=== PATIENT | female | born 1985 | race Caucasian/White ===

== ENCOUNTER 2016-10-17 07:41 | Observation (INO) | payer MEDICAID ==
[2016-10-17] MEDS ORDERED: HYDROCODONE BIT/HOMATROPINE SYRUP 5 ML UDCUP PO ONE (08:38)
[2016-10-17] MEDS ORDERED: HYDROCODONE BIT/HOMATROPINE 5-1.5 MG TABLET PO ONE (09:00)
--- NOTE | 2016-10-17 09:50 | RADIOLOGY REPORT (SQ) ---
EXAM DESCRIPTION: CT SOFT TISSUE NECK WITH COMPLETED DATE/TIME: 10/17/2016 9:25 am REASON FOR STUDY: 36- sore throat , trouble swallowing, hx abscess COMPARISON: None. TECHNIQUE: Post IV contrasted scanning from skull base through lung apices with review of bone, soft tissue and lung windows. Reconstructed coronal and sagittal MPR images reviewed. All images stored on PACS. All CT scanners at this facility use dose modulation, iterative reconstruction, and/or weight based d osing when appropriate to reduce radiation dose to as low as reasonably achievable (ALARA). [facility]: Dose Right [facility]: CareDose [facility]: Dose Right [facility]: Teradose 4D [facility]: Clear Water Outdoor CONTRAST TYPE AND DOSE: 75mL Isovue 370- low osmolar. RENAL FUNCTION: None required. The patient is less than 50 years old. RADIATION DOSE: 7.07 mGy. LIMITATIONS: None. FINDINGS: SKULL BASE: Intact. MAJOR SALIVARY GLANDS: No solid or cystic masses. No inflammatory changes. LYMPHADENOPATHY: No adenopathy. MUCOSAL MASSES OR ASYMMETRY: 1.5 cm expansile low-attenuation lesion right palatine tonsil. No signi ficant airway narrowing. LARYNX/CORDS: No abnormal findings. VASCULAR STRUCTURES: The major vessels are patent. LUNG APICES: Clear. BONES: Intact. THYROID: Normal size. No masses. PARANASAL SINUSES: Clear. OTHER: No other significant finding. IMPRESSION: Right palatine tonsillar abscess. TECHNICAL DOCUMENTATION: JOB ID: [id number] Quality ID # [id number]: Final reports with documentation of one or more dose reduction techniques (e.g., Au tomated exposure control, adjustment of the mA and/or kV according to patient size, use of iterative reconstruction technique) 2010 [employer]- All Rights Reserved
--- NOTE | 2016-10-17 09:53 | ER Document Report ---
HPI - HPI Patient complains to provider of: sore throat Onset: Other - 3 days Quality of pain: Sharp Severity: Severe Pain Level: 5 Context: Patient presents emergency department with complaints of sore throat for the past 3 days. She reports this likely relates going down the right side of her throat. Patient also complains that she has trouble swallowing, hurts to swallow. Reports fever of 102 yesterday. Took Advil this morning at 730. Reports some diarrhea. Reports history of possible retropharyngeal abscess when she was 24 years old. She reports she had no exposure to strep that she is aware of. Reports she just traveled here from [place], doesn't have a primary care provider Associated Symptoms: Fever Exacerbated by: Food Relieved by: Denies Similar symptoms previously: No Recently seen / treated by doctor: No - REPRODUCTIVE LMP: 09/09/16 - DERM Skin Color: Normal, [place] Past Medical History - General Information source: Patient Last Menstrual Period: september, denies , reports she is not sexually active - Social History Smoking Status: Current Some Day Smoker Cigarette use (# per day): Yes Chew tobacco use (# tins/day): No Frequency of alcohol use: Social Drug Abuse: Marijuana Family History: None Patient has suicidal ideation: No Patient has homicidal ideation: No Renal/ Medical History: Denies: Hx Peritoneal Dialysis GI Medical History: Reports: Other - pancreatitis Past Surgical History: Reports: Hx Tonsillectomy Vertical Provider Document - CONSTITUTIONAL Agree With Documented VS: Yes General Appearance: WD/WN - INFECTION CONTROL TRAVEL OUTSIDE OF THE [place] IN LAST 30 DAYS: No - HEENT HEENT: Atraumatic, Normocephalic, Pharyngeal Erythema - opens mouth wide, clear voice no trismus. negative: Conjuctival Injection, Pharyngeal Exudate, Tympanic Membrane Red, Tympanic Membrane Bulging - NECK Neck: Normal Inspection, Supple. negative: Lymphadenopathy-Left, Lymphadenopathy-Right - RESPIRATORY Respiratory: Breath Sounds Normal, No Respiratory Distress O2 Sat by Pulse Oximetry: 100 - CARDIOVASCULAR Cardiovascular: Regular Rate, Regular Rhythm - GI/ABDOMEN Gastrointestinal: Abdomen Soft, Abdomen Non-Tender - MUSCULOSKELETAL/EXTREMETIES Musculoskeletal/Extremeties: BRITTNEE BROWN - NEURO Level of Consciousness: Awake, Alert, Appropriate Motor/Sensory: No Motor Deficit Course - Re-evaluation Re-evalutation: 10/17/16 10:18 dr perez consulted per [facility] guidelines. ENT consulted, dr cherise yates, he requested iv antibx, steroids for 24hours, admit to hospitalist, consult him. 10/17/16 10:29 Pt updated on plan, agrees to admission. 10/17/16 11:00 Contacted Lyudmila archibald, Hospitalist for admission. She agree's will come down to see her. - Vital Signs Vital signs: Temp Pulse Resp BP Pulse Ox 97.5 F 91 16 106/76 100 10/17/16 07:47 10/17/16 07:47 10/17/16 07:47 10/17/16 07:47 10/17/16 07:47 - Laboratory Result Diagrams: 10/17/16 10:30 10/17/16 10:30 - Diagnostic Test Radiology reviewed: Image reviewed, Reports reviewed - palatine abscess - Consults dr cherise yates Consulted provider: will see as inpatient Discharge - Discharge Clinical Impression: palatine Abscess Admitting Provider: Hospitalist - [facility] Unit Admitted: Surgical Floor
[2016-10-17] MEDS ORDERED: DEXAMETHASONE SOD PHOS INJ 10 MG/1 ML VIAL IV ONE (10:17)
[2016-10-17] MEDS ORDERED: CLINDAMYCIN 600 MG/D5W RTU 50 ML IV ONE (10:17)
[2016-10-17] MEDS ORDERED: ONDANSETRON HCL INJ/PF 4 MG/2 ML SDV IV PRN ×2 (11:04→11:34)
[2016-10-17] MEDS ORDERED: ACETAMINOPHEN 325 MG TABLET PO PRN ×2 (11:04→11:34)
[2016-10-17] MEDS ORDERED: OXYCODONE-ACETAMINOPHEN 5-325 MG TABLET PO PRN (11:04)
[2016-10-17 11:09] LABS: ABSOLUTE BASOPHILS # (AUTO) 0.1 10^3/uL (0.0-0.2); ABSOLUTE EOSINOPHILS # (AUTO) 0.1 10^3/uL (0.0-0.6); ABSOLUTE LYMPHOCYTES (AUTO) 1.4 10^3/uL (0.5-4.7); ABSOLUTE MONOCYTES (AUTO) 1.5 10^3/uL (0.1-1.4); BASOPHILS % (AUTO) 0.7 % (0-2); EOSINOPHILS % (AUTO) 0.9 % (0-6); HEMATOCRIT 32.7 % (36.0-47.0); HEMOGLOBIN 10.8 g/dL (12.0-15.5); HGB HCT DIFFERENCE -0.3; LYMPHOCYTES % (AUTO) 10.8 % (13-45); MEAN CORPUSCULAR HGB CONC 33.2 g/dL (32.0-36.0); MEAN CORPUSCULAR VOLUME 106 fl (80-97); MONOCYTES % (AUTO) 11.6 % (3-13); RED BLOOD COUNT 3.09 10^6/uL (3.72-5.28); RED CELL DISTRIBUTION WIDTH 18.1 % (11.5-14.0); WHITE BLOOD COUNT 13.2 10^3/uL (4.0-10.5)
[2016-10-17 12:18] LABS: ALANINE AMINOTRANSFERASE 44 U/L (9-52); ALBUMIN 3.3 g/dL (3.5-5.0); ALKALINE PHOSPHATASE 115 U/L (38-126); ANION GAP 14 (5-19); ASPARTATE AMINO TRANSFERASE 48 U/L (14-36); BILIRUBIN,DIRECT 0.4 mg/dL (0.0-0.4); BILIRUBIN,TOTAL 0.6 mg/dL (0.2-1.3); BLOOD UREA NITROGEN 4 mg/dL (7-20); CALCIUM 8.2 mg/dL (8.4-10.2); CARBON DIOXIDE 24 mmol/L (22-30); CHLORIDE 107 mmol/L (98-107); CREATININE RESULT 0.48 mg/dL (0.52-1.25); GLUCOSE 102 mg/dL (75-110); POTASSIUM 3.6 mmol/L (3.6-5.0); SODIUM 144.8 mmol/L (137-145); TOTAL PROTEIN 5.9 g/dL (6.3-8.2)
[2016-10-17] MEDS: KETOROLAC TROMETHAMINE INJ/PF 30 MG/1 ML SDV IV PRN (13:50)
[2016-10-17] MEDS ORDERED: CLINDAMYCIN 600 MG/D5W RTU 50 ML IV SCH (14:00)
--- NOTE | 2016-10-17 14:49 | PDOC H&P ---
History of Present Illness Admission Date/PCP: 10/17/16 11:04 Patient complains of: Worsening sore throat x 2 days, fever and difficulty swallowing History of Present Illness: CHRISTINA CLEMENS is a 31 year old female who is recently traveled to the area to visit family from [place]. She notes a worsening sore throat over the last 2 days. Last evening she had a temperature up to 102 with increasing difficulty swallowing. She has history of frequent strep pharyngitis as a teenager. She underwent tonsillectomy at age 18. She denies any headache, sinus congestion or cough. She denies any nausea, vomiting or abdominal pain. She has had no recent sick contacts. Difficulty swallowing increased this morning therefore she presented to the emergency room. She was found to have a peritonsillar abscess on the right on CT scan. Past Medical History Cardiac Medical History: Reports: None Pulmonary Medical History: Reports: None EENT Medical History: Reports: Throat Neurological Medical History: Reports: None Endocrine Medical History: Reports: None Renal/ Medical History: Reports: None Malignancy Medical History: Reports: None GI Medical History: Reports: None, Other - pancreatitis Skin Medical History: Reports: None Psychiatric Medical History: Reports: None Traumatic Medical History: Reports: None Hematology: Reports: None Infectious Medical History: Reports: None Past Surgical History Past Surgical History: Reports: Tonsillectomy Social History Smoking Status: Current Some Day Smoker Cigarettes Packs Per Day: 0.5 Number of Years Smokin Frequency of Alcohol Use: Occasional Hx Recreational Drug Use: No Hx Prescription Drug Abuse: No - Advance Directive Resuscitation Status: Full Code Family History Family History: Hypertension Parental Family History Reviewed: Yes Children Family History Reviewed: NA Sibling(s) Family History Reviewed.: Yes Medication/Allergy Home Medications: No Home Medications 10/17/16 Allergies/Adverse Reactions: No Known Allergies Allergy (Verified 10/17/16 07:46) Review of Systems Constitutional: PRESENT: chills, fever(s) Eyes: ABSENT: visual disturbances Ears: ABSENT: hearing changes Nose, Mouth, and Throat: PRESENT: sore throat Cardiovascular: ABSENT: chest pain, dyspnea on exertion, edema, orthropnea, palpitations Respiratory: ABSENT: cough, hemoptysis Gastrointestinal: ABSENT: abdominal pain, constipation, diarrhea, hematemesis, hematochezia, nausea, vomiting Genitourinary: ABSENT: dysuria, hematuria Musculoskeletal: ABSENT: joint swelling Integumentary: ABSENT: rash, wounds Neurological: ABSENT: abnormal gait, abnormal speech, confusion, dizziness, focal weakness, syncope Psychiatric: ABSENT: anxiety, depression, homidical ideation, suicidal ideation Endocrine: ABSENT: cold intolerance, heat intolerance, polydipsia, polyuria Hematologic/Lymphatic: ABSENT: easy bleeding, easy bruising Physical Exam Vital Signs: Temp Pulse Resp BP Pulse Ox 97.5 F 91 16 106/76 100 10/17/16 07:47 10/17/16 07:47 10/17/16 07:47 10/17/16 07:47 10/17/16 11:16 General appearance: PRESENT: no acute distress, thin, well-developed, well- nourished Head exam: PRESENT: atraumatic, normocephalic Eye exam: PRESENT: conjunctiva pink, EOMI, PERRLA. ABSENT: scleral icterus Ear exam: PRESENT: normal external ear exam Throat exam: PRESENT: post pharyngeal erythema, other - exudate on right Neck exam: PRESENT: lymphadenopathy, tenderness. ABSENT: carotid bruit, JVD, thyromegaly Respiratory exam: PRESENT: clear to auscultation geovanna. ABSENT: rales, rhonchi, wheezes Cardiovascular exam: PRESENT: RRR. ABSENT: diastolic murmur, rubs, systolic murmur Pulses: PRESENT: normal dorsalis pedis pul Vascular exam: PRESENT: normal capillary refill GI/Abdominal exam: PRESENT: normal bowel sounds, soft. ABSENT: distended, guarding, mass, organolmegaly, rebound, tenderness Rectal exam: PRESENT: deferred Extremities exam: PRESENT: full ROM. ABSENT: calf tenderness, clubbing, pedal edema Neurological exam: PRESENT: alert, awake, oriented to person, oriented to place , oriented to time, oriented to situation, CN II-XII grossly intact. ABSENT: motor sensory deficit Psychiatric exam: PRESENT: appropriate affect, normal mood. ABSENT: homicidal ideation, suicidal ideation Skin exam: PRESENT: dry, intact, warm. ABSENT: cyanosis, rash Results Laboratory Results: 10/17/16 11:40 10/17/16 11:40 Sodium 144.8 Potassium 3.6 Chloride 107 Carbon Dioxide 24 Anion Gap 14 BUN 4 L Creatinine 0.48 L Est GFR ( Amer) > 60 Est GFR (Non-Af Amer) > 60 Glucose 102 Calcium 8.2 L Total Bilirubin 0.6 AST 48 H ALT 44 Alkaline Phosphatase 115 Total Protein 5.9 L Albumin 3.3 L Impressions: Soft Tissue Neck CT 10/17/16 08:38 IMPRESSION: Right palatine tonsillar abscess. Assessment & Plan - Diagnosis (1) Acute pharyngitis Qualifiers: Pharyngitis/tonsillitis etiology: unspecified etiology Qualified Code(s): J02.9 - Acute pharyngitis, unspecified Is this a current diagnosis for this admission?: YesPlan: Clindamycin IV, Dexamethasone IV and prn analgesics (2) Peritonsillar abscess Is this a current diagnosis for this admission?: YesPlan: As above and ENT, Dr Paz consulted - Time Time Spent: 50 to 70 Minutes Critical Time spent with patient: 25-34 minutes Smoking Cessation Education: 3 to 10 minutes Medications reviewed and adjusted accordingly: Yes Anticipated discharge: Home Within: within 24 hours
[2016-10-17] MEDS: OXYCODONE-ACETAMINOPHEN 5-325 MG TABLET PO PRN ×2 (15:35→20:28)
[2016-10-17] MEDS ORDERED: MORPHINE SULFATE 10 MG/ML INJ IV ONE (17:07)
[2016-10-17] MEDS ORDERED: NORMAL SALINE 1000 ML 1,000 ML IV ONE (17:07)
[2016-10-17] MEDS: CLINDAMYCIN 600 MG/D5W RTU 600 MG/50 ML RTUPB IV SCH (17:32)
[2016-10-17] MEDS: DEXAMETHASONE SOD PHOS INJ 10 MG/1 ML VIAL IV SCH (17:35)
[2016-10-18] MEDS: DEXAMETHASONE SOD PHOS INJ 10 MG/1 ML VIAL IV SCH ×5 (00:42→23:03)
[2016-10-18] MEDS: OXYCODONE-ACETAMINOPHEN 5-325 MG TABLET PO PRN ×5 (00:42→20:40)
[2016-10-18] MEDS: CLINDAMYCIN 600 MG/D5W RTU 600 MG/50 ML RTUPB IV SCH ×3 (02:41→17:13)
[2016-10-18] MEDS: KETOROLAC TROMETHAMINE INJ/PF 30 MG/1 ML SDV IV PRN ×3 (02:47→23:03)
--- NOTE | 2016-10-18 11:03 | PDOC PROGRESS REPORT ---
Subjective Progress Note for:: 10/18/16 Subjective:: Patient seen on morning rounds. Dr Paz, ENT surgeon, just performed I and D of right tonsillar bed abscess removing 3 cc of purulent drainage. She states she already feels like swallowing is better. She felt better than yesterday prior to procedure as well. She states throat pain and swelling had improved with antibiotics and steroids. She is able to drink without difficulty. She denies any fevers or chills overnight. Rest of the review of systems is negative Physical Exam Vital Signs: Temp Pulse Resp BP Pulse Ox 97.8 F 56 L 16 100/68 100 10/18/16 07:47 10/18/16 07:47 10/18/16 07:47 10/18/16 07:47 10/18/16 07:47 Intake & Output 10/17/16 10/18/16 10/19/16 06:59 06:59 06:59 Intake Total 1730 Balance 1730 Weight 54.3 kg General appearance: PRESENT: no acute distress, thin, well-developed, well- nourished Head exam: PRESENT: atraumatic, normocephalic Eye exam: PRESENT: conjunctiva pink, EOMI, PERRLA. ABSENT: scleral icterus Ear exam: PRESENT: normal external ear exam Mouth exam: PRESENT: moist, tongue midline Neck exam: PRESENT: lymphadenopathy - bilateral anterior cervical, tenderness. ABSENT: carotid bruit, JVD, thyromegaly Respiratory exam: PRESENT: clear to auscultation geovanna. ABSENT: rales, rhonchi, wheezes Cardiovascular exam: PRESENT: RRR. ABSENT: diastolic murmur, rubs, systolic murmur Pulses: PRESENT: normal dorsalis pedis pul Vascular exam: PRESENT: normal capillary refill GI/Abdominal exam: PRESENT: normal bowel sounds, soft. ABSENT: distended, guarding, mass, organolmegaly, rebound, tenderness Rectal exam: PRESENT: deferred Extremities exam: PRESENT: full ROM. ABSENT: calf tenderness, clubbing, pedal edema Neurological exam: PRESENT: alert, awake, oriented to person, oriented to place , oriented to time, oriented to situation, CN II-XII grossly intact. ABSENT: motor sensory deficit Psychiatric exam: PRESENT: appropriate affect, normal mood. ABSENT: homicidal ideation, suicidal ideation Results Laboratory Results: 10/17/16 11:40 10/17/16 11:40 Sodium 144.8 Potassium 3.6 Chloride 107 Carbon Dioxide 24 Anion Gap 14 BUN 4 L Creatinine 0.48 L Est GFR ( Amer) > 60 Est GFR (Non-Af Amer) > 60 Glucose 102 Calcium 8.2 L Total Bilirubin 0.6 AST 48 H ALT 44 Alkaline Phosphatase 115 Total Protein 5.9 L Albumin 3.3 L Impressions: Soft Tissue Neck CT 10/17/16 08:38 IMPRESSION: Right palatine tonsillar abscess. Assessment & Plan - Diagnosis (1) Acute pharyngitis Qualifiers: Pharyngitis/tonsillitis etiology: unspecified etiology Qualified Code(s): J02.9 - Acute pharyngitis, unspecified Is this a current diagnosis for this admission?: YesPlan: Clindamycin IV, Dexamethasone IV and prn analgesics for another 24 hrs then change to oral for discharge (2) Peritonsillar abscess Is this a current diagnosis for this admission?: YesPlan: Bedside I and D done by Dr Paz ENT this morning (3) Tobacco abuse counseling Is this a current diagnosis for this admission?: YesPlan: Patient was counseled. She is contemplating quitting - Time Time Spent with patient: 25-34 minutes Critical Time spent with patient: 15-24 minutes Smoking Cessation Education: 3 to 10 minutes Medications reviewed and adjusted accordingly: Yes Anticipated discharge: Home - Inpatient Certification Based on my medical assessment, after consideration of the patient's comorbidities, presenting symptoms, or acuity I expect that the services needed warrant INPATIENT care.: Yes I certify that my determination is in accordance with my understanding of Medicare's requirements for reasonable and necessary INPATIENT services [42 CFR 412.3e].: Yes
--- NOTE | 2016-10-18 16:44 | CONSULTATION REPORT E ---
Consultation Report NAME: CHRISTINA CLEMENS : 1985 AGE: 31Y DATE: 10/18/2016 426 B TO: JERRY DELEON III, M.D. FROM: MARIAN ASKEW N.P. Requesting Physician PRESENT ILLNESS: The patient has a 48-72 hour history for increasing sore throat on the right side. She presented herself to the emergency room 24 hours ago for further evaluation. A CAT scan demonstrated an obvious abscess in the area of the right tonsil. The patient was admitted to the hospitalist service and started on 600 mg of clindamycin IV every 6 hours, 10 mg of Decadron IV every 6 hours and analgesic medication. I was called from the emergency room with a request to consult on the patient regarding the presence of an abscess. Further medical history indicates that the patient had a tonsillectomy at age 16. At age 21 she had bilateral peritonsillar abscesses which required incision and drainage with which she remembers a great deal of angst. She lives in [place] and has traveled to [place], [place], to seek possible relocation and job opportunities. PHYSICAL EXAMINATION: Bedside physical examination showed a well-developed, healthy-appearing 31-year-old female in mild distress from right throat pain. She stated that her symptoms were somewhat improved in the last 24 hours following her hospitalization and administration of intravenous fluids and medications. She is able to open her mouth quite widely. She clearly has an area of swelling that is soft to palpation in the area of the right tonsil. Both tonsils are surgically absent. I reviewed the CT scan and agree with the diagnosis. IMPRESSION: Right peritonsillar abscess. DISPOSITION: I then proceeded to open the abscess up by spraying topical anesthetic on the tonsil region. Then with a 25-gauge needle we injected 1:100,000 epinephrine/Xylocaine solution. A few minutes were allowed to elapse and then with a 18-gauge needle, identification of the abscess was confirmed, with removal of approximately 3 mL of gross yellow-green pus. I then made a small stab incision with a #11 scalpel approximately 5 mm in size. I then inserted a curved hemostat to open the abscess pocket up a little bit more widely. While this was uncomfortable for the patient, she seemed to tolerate it reasonably well. I anticipate that she will get dramatic improvement with the abscess having been drained in the next 24 hours and probably can be released from the hospital. I wrote her prescriptions for clindamycin 150 mg p.o. q.i.d. for a 2-week period, I gave her a Medrol Dosepak to start when she exits the hospital, and I wrote her a prescription for some Percocet 10/325 one by mouth every 4 hours p.r.n. pain, #24. I told her that I would be available through the weekend if any untoward consequences come from this consultation with the incision and drainage of the right peritonsillar abscess. The patient seemed pleased with her consultative report and opening the abscess for her. DICTATING PHYSICIAN: JERRY DELEON III M.D. [id number] PHY#: [id number] ID: [id number] JOB#: [id number] ACCT: [id number] cc:JERRY DELEON III, M.D. >
[2016-10-19] MEDS: CLINDAMYCIN 600 MG/D5W RTU 600 MG/50 ML RTUPB IV SCH ×2 (01:50→09:42)
[2016-10-19] MEDS: DEXAMETHASONE SOD PHOS INJ 10 MG/1 ML VIAL IV SCH (05:27)
[2016-10-19 08:24] VITALS: BP 112/71
[2016-10-19] MEDS: KETOROLAC TROMETHAMINE INJ/PF 30 MG/1 ML SDV IV PRN (09:42)
--- NOTE | 2016-10-19 11:11 | PDOC DISCHARGE SUMMARY ---
General - Admit/Disc Date/PCP Admission Date/Primary Care Provider: 10/17/16 11:04 Discharge Date: 10/19/16 - Discharge Diagnosis (1) Acute pharyngitis Is this a current diagnosis for this admission?: YesSummary: Resolving (2) Peritonsillar abscess Is this a current diagnosis for this admission?: YesSummary: Incised and drained by Dr Paz, ENT. He prescribed clindamycin 150 mg qid x 2 weeks (3) Tobacco abuse counseling Is this a current diagnosis for this admission?: Yes - Additional Information Resuscitation Status: Full Code Discharge Diet: Regular Discharge Activity: Activity As Tolerated Home Medications: Clindamycin HCl [Cleocin HCl] 150 mg PO QID #56 capsule 10/19/16 Oxycodone HCl/Acetaminophen [Percocet 5-325 mg Tablet] 1 tab PO Q4HP PRN tablet 10/19/16 History of Present Illness Patient complains of: Severe sore throat and difficulty swallowing History of Present Illness: CHRISTINA CLEMENS is a 31 year old female who is recently traveled to the area to visit family from [place]. She notes a worsening sore throat over the last 2 days. Last evening she had a temperature up to 102 with increasing difficulty swallowing. She has history of frequent strep pharyngitis as a teenager. She underwent tonsillectomy at age 18. She denies any headache, sinus congestion or cough. She denies any nausea, vomiting or abdominal pain. She has had no recent sick contacts. Difficulty swallowing increased this morning therefore she presented to the emergency room. She was found to have a peritonsillar abscess on the right on CT scan. Physical Exam Vital Signs: Temp Pulse Resp BP Pulse Ox 98.2 F 88 15 112/71 100 10/19/16 10:09 10/19/16 10:09 10/19/16 10:09 10/19/16 10:09 10/19/16 10:09 Intake & Output 10/18/16 10/19/16 10/20/16 06:59 06:59 06:59 Intake Total 1730 250 Output Total 500 Balance 1730 -250 Weight 54.3 kg 56.1 kg General appearance: PRESENT: no acute distress, thin, well-developed, well- nourished Head exam: PRESENT: atraumatic, normocephalic Eye exam: PRESENT: conjunctiva pink, EOMI, PERRLA. ABSENT: scleral icterus Ear exam: PRESENT: normal external ear exam Mouth exam: PRESENT: moist, tongue midline Neck exam: ABSENT: carotid bruit, JVD, lymphadenopathy, thyromegaly Respiratory exam: PRESENT: clear to auscultation geovanna. ABSENT: rales, rhonchi, wheezes Cardiovascular exam: PRESENT: RRR. ABSENT: diastolic murmur, rubs, systolic murmur Pulses: PRESENT: normal dorsalis pedis pul Vascular exam: PRESENT: normal capillary refill GI/Abdominal exam: PRESENT: normal bowel sounds, soft. ABSENT: distended, guarding, mass, organolmegaly, rebound, tenderness Rectal exam: PRESENT: deferred Extremities exam: PRESENT: full ROM. ABSENT: calf tenderness, clubbing, pedal edema Neurological exam: PRESENT: alert, awake, oriented to person, oriented to place , oriented to time, oriented to situation, CN II-XII grossly intact. ABSENT: motor sensory deficit Psychiatric exam: PRESENT: appropriate affect, normal mood. ABSENT: homicidal ideation, suicidal ideation Skin exam: PRESENT: dry, intact, warm. ABSENT: cyanosis, rash Results Laboratory Results: 10/17/16 11:40 Impressions: Soft Tissue Neck CT 10/17/16 08:38 IMPRESSION: Right palatine tonsillar abscess. Qualifiers PATEINT BEING DISCHARGED WITH ANY OF THE FOLLOWING DIAGNOSIS?: No Plan Discharge Plan: Home follow up with Dr Paz as needed Time Spent: Less than 30 Minutes
== END 2016-10-19 10:56 | disposition home or self-care (01) ==
LOC: ER 07:41 → EH 11:04 → INTOOBSV 11:04 → EH 11:31 → UNDOADMIN 11:31 → 4S 13:14 → EH 13:14
PROC: 0C9PXZZ Drainage of Tonsils, External Approach (ICD-10-PCS; principal; 2016-10-18)
PROC: HZ31ZZZ Individual Counseling for Substance Abuse Treatment, Behavioral (ICD-10-PCS; 2016-10-18)
DX: J36 Peritonsillar abscess (principal); J02.9 Acute pharyngitis, unspecified; F17.210 Nicotine dependence, cigarettes, uncomplicated; Z98.890 Other specified postprocedural states
CPT/HCPCS: 99284; 96375; 96365; 36415; 87040; 87070; 87880; 84703; 85025; 80053; 70491; 42700; 99406; G0378 ×4; J1885 ×3; J2270; J2405; J7030; J1100 ×3